=== PATIENT | male | born 1995 | race Caucasian/White ===

== ENCOUNTER 2019-09-29 22:16 | Emergency (ER) | payer BC ==
[2019-09-29] MEDS ORDERED: Albuterol 6.7 GM Inhaler INH ONE ×2 (22:17→23:21)
[2019-09-29] MEDS ORDERED: Albuterol/Ipratropium 3.0-0.5 MG/3 ML Neb Soln NEB ONE (22:57)
[2019-09-29] MEDS ORDERED: Benzonatate 100 MG Cap PO ONE (23:14)
--- NOTE | 2019-09-29 23:26 | EDM.PDOC ---
ED HPI GENERAL MEDICAL PROBLEM - General Chief Complaint: Respiratory Problem Stated Complaint: COUGH, SHORTNESS OF BREATH, CHEST Time Seen by Provider: 09/29/19 22:40 Source of Information: Reports: Patient, RN History Limitations: Reports: No Limitations - History of Present Illness INITIAL COMMENTS - FREE TEXT/NARRATIVE: ED with c/o cough chest discomfort for past 3 hours , has not tried anything. No fever or chills, cough non productive dry, chest discomfort with cough, No SOB. No troat pain. Reports recent move to area from [place] and not used to cold temps Chest Pain Score (Numeric/FACES): 6 - Related Data Allergies Allergy/AdvReac Type Severity Reaction Status Date / Time No Known Allergies Allergy Verified 09/29/19 22:27 Home Meds: Home Meds . [No Known Home Meds] 09/29/19 [History] Social & Family History - Family History Family Medical History: Noncontributory - Tobacco Use Smoking Status *Q: Current Every Day Smoker Years of Tobacco use: 3 Packs/Tins Daily: 0.5 - Caffeine Use Caffeine Use: Reports: Coffee - Recreational Drug Use Recreational Drug Use: No ED ROS GENERAL - Review of Systems Review Of Systems: Comprehensive ROS is negative, except as noted in HPI. ED EXAM, GENERAL - Physical Exam Exam: See Below Exam Limited By: No Limitations General Appearance: Alert Eye Exam: Bilateral Eye: EOMI Ears: Normal External Exam, Normal TMs Nose: Normal Inspection Throat/Mouth: Normal Inspection Head: Atraumatic, Normocephalic Neck: Normal Inspection Respiratory/Chest: No Respiratory Distress, Lungs Clear, Normal Breath Sounds, Other (frequent dry cough). No: Respiratory Distress, Rales, Rhonchi, Wheezing , Stridor Cardiovascular: Normal Peripheral Pulses, Regular Rate, Rhythm GI/Abdominal: Normal Bowel Sounds Extremities: Normal Inspection, Normal Range of Motion Neurological: Alert, Oriented, Normal Cognition Psychiatric: Normal Affect, Normal Mood Skin Exam: Warm, Dry, Intact, Normal Color Course - Vital Signs Last Recorded V/S: Last Vital Signs Temp 98 F 09/29/19 22:28 Pulse 90 09/29/19 22:28 Resp 20 09/29/19 22:28 BP 129/83 09/29/19 22:28 Pulse Ox 98 09/29/19 22:28 - Orders/Labs/Meds Orders: Active Orders 24 hr Category Date Time Status RT Aerosol Therapy [RC] ASDIRECTED Care 09/29/19 22:57 Active Meds: Medications Discontinued Medications Generic Name Dose Route Start Last Admin Trade Name Cathy PRN Reason Stop Dose Admin Albuterol Confirm 09/29/19 23:21 Proventil Hfa Administered 09/29/19 23:22 Dose 6.7 gm INH .STK-MED ONE Albuterol/Ipratropium 3 ml 09/29/19 22:57 09/29/19 23:02 Duoneb 3.0-0.5 Mg/3 Ml NEB 09/29/19 22:58 3 ml ONETIME ONE Administration Benzonatate 200 mg 09/29/19 23:14 09/29/19 23:20 Tessalon Perles PO 09/29/19 23:15 200 mg ONETIME ONE Administration Departure - Departure Time of Disposition: 23:26 Disposition: Home, Self-Care 01 Condition: Good Clinical Impression: Bronchospasm Reactive airway disease Qualifiers: Asthma severity: mild Asthma persistence: intermittent Asthma complication type : with acute exacerbation Qualified Code(s): J45.21 - Mild intermittent asthma with (acute) exacerbation - Discharge Information *PRESCRIPTION DRUG MONITORING PROGRAM REVIEWED*: No *COPY OF PRESCRIPTION DRUG MONITORING REPORT IN PATIENT CECELIA: No Instructions: Bronchospasm, Adult, Cough, Adult, [id number] Forms: ED Department Discharge Additional Instructions: humidification avoid smoking increase fluids OTC cough and cold medications as needed per label instructions Albuterol inhaler 2 puffs every 4 hours as needed for cough follow up if symptoms worsen - My Orders Last 24 Hours: My Active Orders 09/29/19 22:57 RT Aerosol Therapy [RC] ASDIRECTED - Assessment/Plan Last 24 Hours: My Active Orders 09/29/19 22:57 RT Aerosol Therapy [RC] ASDIRECTED
== END 2019-09-29 23:32 | disposition home or self-care (01) ==
LOC: DL.ED 22:16
DX: J45.21 Mild intermittent asthma with (acute) exacerbation (principal); F17.210 Nicotine dependence, cigarettes, uncomplicated
CPT/HCPCS: 87804; 99285; A9270; J7620-GY

== ENCOUNTER 2019-11-02 12:16 | Emergency (ER) | payer BC ==
--- NOTE | 2019-11-02 14:08 | EDM.PDOC ---
Scribed by Chrystal Burger 11/02/19 0806 for Arnaldo Scott MD ED HPI GENERAL MEDICAL PROBLEM - General Chief Complaint: ENT Problem Stated Complaint: DIZZY/POSSIBLE EAR INFECTION Time Seen by Provider: 11/02/19 13:56 Source of Information: Reports: Patient, RN, RN Notes Reviewed History Limitations: Reports: No Limitations - History of Present Illness INITIAL COMMENTS - FREE TEXT/NARRATIVE: Patient reports that yesterday and last evening he became dizzy, reports " I think that I have an inner ear infection." Denies any pain with this. Laying down feels good but as soon as he gets up he feels dizzy. [place] [facility] and symptoms began as he came [place] from high altitude. Onset: Gradual Duration: Other (dizzy) Location: Reports: Other (ears) Severity: Mild Improves with: Reports: None Worsens with: Reports: None Associated Symptoms: Reports: No Other Symptoms - Related Data Allergies Allergy/AdvReac Type Severity Reaction Status Date / Time No Known Allergies Allergy Verified 11/02/19 13:44 Home Meds: Home Meds . [No Known Home Meds] 09/29/19 [History] Past Medical History - Past Health History Medical/Surgical History: Denies Medical/Surgical History Social & Family History - Family History Family Medical History: Noncontributory - Caffeine Use Caffeine Use: Reports: Coffee ED ROS ENT - Review of Systems Review Of Systems: Comprehensive ROS is negative, except as noted in HPI. ED EXAM, ENT - Physical Exam Exam: See Below Exam Limited By: No Limitations General Appearance: Alert, WD/WN, No Apparent Distress Eye Exam: Bilateral Eye: EOMI, Nystagmus (lateral gaze (B/L)), PERRL Ears: Normal External Exam, Normal Canal, Hearing Grossly Normal, TM Bulging (Rt ), TM Dullness (RT), TM Erythema (Rt), Other (Left TM shiny, clear, but retracted with tenting of the ossicles). No: Mastoid Swelling, Mastoid Tenderness, Canal Discharge, Canal Swelling, TM Blood, TM Fluid, TM Perforation Nose: Normal Inspection, Normal Mucousa, No Blood Mouth/Throat: Normal Inspection, Normal Gums, Normal Lips, Normal Oropharynx, Normal Teeth Head: Atraumatic, Normocephalic Neck: Normal Inspection, Supple, Non-Tender, Full Range of Motion. No: Lymphadenopathy (L), Lymphadenopathy (R) Respiratory/Chest: No Respiratory Distress, Lungs Clear, Normal Breath Sounds, No Accessory Muscle Use, Chest Non-Tender Cardiovascular: Regular Rate, Rhythm Neurological: Alert, Oriented, CN II-XII Intact, Normal Cognition, Normal Gait, No Motor/Sensory Deficits Psychiatric: Normal Affect, Normal Mood Skin: Warm, Dry, Intact, Normal Color, No Rash Course - Vital Signs Last Recorded V/S: Last Vital Signs Temp 97.0 F 11/02/19 13:46 Pulse 82 11/02/19 13:46 Resp 18 11/02/19 13:46 BP 120/48 L 11/02/19 13:46 Pulse Ox 98 11/02/19 13:46 Departure - Departure Time of Disposition: 14:04 Disposition: Home, Self-Care 01 Condition: Good Clinical Impression: Labyrinthitis, bilateral Otitis media Qualifiers: Otitis media type: suppurative Chronicity: acute Laterality: right Recurrence: non-recurrent Spontaneous tympanic membrane rupture: without spontaneous rupture Qualified Code(s): H66.001 - Acute suppurative otitis media without spontaneous rupture of ear drum, right ear - Discharge Information *PRESCRIPTION DRUG MONITORING PROGRAM REVIEWED*: No *COPY OF PRESCRIPTION DRUG MONITORING REPORT IN PATIENT CECELIA: No Instructions: Labyrinthitis, Otitis Media, Adult, [id number] Forms: ED Department Discharge Additional Instructions: Rx: Augmentin 875mg Rx: Prednisone 20mg Rx: Meclizine 25mg Use Claritin D 24HR One tablet by mouth daily for 7 to 10 days (over the counter , but you must ask for and sign for it at the pharmacy). Frequently and gently pinch your nose and blow to equalize the inner ear pressure. Follow up in clinic if not improving in 3 to 5 days. Sepsis Event Note - Evaluation Sepsis Screening Result: No Definite Risk - Focused Exam Vital Signs: Vital Signs Temp Pulse Resp BP Pulse Ox 11/02/19 13:46 97.0 F 82 18 120/48 L 98 Date Exam was Performed: 11/02/19 Time Exam was Performed: 14:01 I have read and agree with the documentation that has been completed regarding this visit. By signing this record, I attest that the documentation was completed in my physical presence and is an accurate record of the encounter.
== END 2019-11-02 14:30 | disposition home or self-care (01) ==
LOC: DL.ED 12:16
CPT/HCPCS: 99283